=== PATIENT | male | born 1980 | race Caucasian/White ===

== ENCOUNTER 2016-12-27 14:48 | Emergency (ER) | payer OTHER ==
[2016-12-27 15:09] VITALS: TEMP 98.7; O2SAT 97
--- NOTE | 2016-12-27 16:29 | C.PDOC ---
History Of Present Illness 36 y/o homeless male presents to ED requesting detox from cocaine. Patient states he uses cocaine and wants to be cleared up to obtain desired employment, shows no signs of withdrawal. Patient denies suicidal ideation, headache, nausea , vomiting, diarrhea or any other complaints at this time. Time Seen by Provider: 12/27/16 15:08 Chief Complaint (Nursing): Substance Abuse History Per: Patient History/Exam Limitations: no limitations Onset/Duration Of Symptoms: Days Modifying Factor(s): Cocaine Past Medical History Reviewed: Historical Data, Nursing Documentation, Vital Signs Vital Signs: Last Vital Signs Temp 98.7 F 12/27/16 15:02 Pulse 71 12/27/16 16:31 Resp 18 12/27/16 16:31 BP 129/76 12/27/16 16:31 Pulse Ox 97 12/27/16 16:31 - Medical History PMH: Depression - [employer] Procedures INDIVID PSYCHOTHERAP NEC (11/26/14) OTHER GROUP THERAPY (11/26/14) Family History: States: No Known Family Hx - Social History Hx Alcohol Use: Yes Hx Substance Use: Yes (Cocaine) - Immunization History Hx Tetanus Toxoid Vaccination: No Hx Influenza Vaccination: No Hx Pneumococcal Vaccination: No Review Of Systems Except As Marked, All Systems Reviewed And Found Negative. Cardiovascular: Negative for: Chest Pain Respiratory: Negative for: Shortness of Breath Gastrointestinal: Negative for: Nausea, Vomiting, Diarrhea Neurological: Negative for: Headache Physical Exam - Physical Exam Appears: Non-toxic, No Acute Distress Skin: Normal Color, Warm Head: Atraumatic, Normacephalic Eye(s): bilateral: Normal Inspection Ear(s): Bilateral: Normal Nose: Normal Throat: Normal, No Erythema Cardiovascular: Rhythm Regular, No Murmur Respiratory: Normal Breath Sounds, No Rales, No Rhonchi, No Wheezing Gastrointestinal/Abdominal: Soft, No Tenderness, No Guarding, No Rebound Extremity: Normal ROM, Capillary Refill (<2 seconds) Neurological/Psych: Oriented x3 ED Course And Treatment O2 Sat by Pulse Oximetry: 97 (RA) Pulse Ox Interpretation: Normal Disposition Counseled Patient/Family Regarding: Diagnosis, Need For Followup - Disposition Disposition: HOME/ ROUTINE Disposition Time: 16:36 Condition: STABLE Forms: General Discharge Instructions - Clinical Impression Clinical Impression: Drug abuse - Scribe Statement The provider has reviewed the documentation as recorded by the Scribfrance Garzata All medical record entries made by the Jarret were at my direction and personally dictated by me. I have reviewed the chart and agree that the record accurately reflects my personal performance of the history, physical exam, medical decision making, and the department course for this patient. I have also personally directed, reviewed, and agree with the discharge instructions and disposition.
[2016-12-27 16:32] VITALS: BP 129/76; PULSE 71; RESP 18
== END 2016-12-27 16:31 | disposition home or self-care (01) ==
LOC: C.ER 14:48
DX: F19.10 Other psychoactive substance abuse, uncomplicated (principal); Z59.0 Homelessness